=== PATIENT | female | born 1940 | race Caucasian/White ===

== ENCOUNTER 2016-12-29 13:14 | Emergency (ER) | payer MEDICARE, MEDICAID ==
[2016-12-29] MEDS ORDERED: NS 0.9% 1000 ML* 1,000 ML IV SCH (14:30)
[2016-12-29 14:38] LABS: Urine Bacteria Absent (Absent); Urine Bilirubin Negative (Negative); Urine Glucose Negative (Negative); Urine Nitrite Negative (Negative)
[2016-12-29 15:16] LABS: Hematocrit 38 % (35-47); Hemoglobin 13.2 g/dl (12.0-16.0); Mean Corpuscular HGB Conc 35 g/dl (31-36); Mean Corpuscular Hemoglobin 33 pg (27-31); Mean Corpuscular Volume 94 fL (80-97); Mean Platelet Volume 10 um3 (7.4-10.4); Red Blood Count 4.07 10^6/ul (4.0-5.4); Red Cell Distribution Width 13 % (10.5-15); White Blood Count 10.1 10^3/ul (3.5-10.8)
[2016-12-29 15:27] LABS: Albumin 4.3 g/dL (3.2-5.2); BUN/Creatinine Ratio 13.5 (8-20); C Reactive Protein 33.36 mg/L (< 5.00); Calcium 8.9 mg/dL (8.6-10.3); EGFR African American 78.9 (>60); EGFR Non-African American 61.3 (>60); Globulin 2.4 g/dL (2-4); Potassium 3.9 mmol/L (3.5-5.0); Total Bilirubin 0.5 mg/dL (0.2-1.0); Total Protein 6.7 g/dL (6.4-8.9)
--- NOTE | 2016-12-29 16:17 | RAD ---
Indication: Right ankle injury. 2 views of the right ankle demonstrates comminuted fracture of the distal tibia. Diffuse osteopenia is noted. No significant displacement is noted. The location of the fracture is in the same location as was noted on September 25, 2012 with partial healing. IMPRESSION: Spiral fracture distal tibia. The fracture is in similar appearance to that seen on September 25, 2012.
--- NOTE | 2016-12-29 16:21 | RAD ---
Indication: Right lower leg injury. 2 views of the right lower leg demonstrates partially healed fracture of the distal tibia. When compared to previous exam of September 25, 2012 overall components appear to be unchanged. Partial healing is noted. Healing fracture proximal fibula. IMPRESSION: Spiral fracture of the distal tibia similar to that seen on September 25, 2012 with partial healing. Healed fracture proximal fibula.
--- NOTE | 2016-12-29 16:26 | RAD ---
Indication: Right shoulder pain. 3 views of the right shoulder demonstrates a fracture through the surgical neck of the right humerus. . No significant displacement is noted. IMPRESSION: Likely fracture through the surgical neck of the right humerus. No significant displacement is noted.
--- NOTE | 2016-12-29 19:45 | ED ---
Santy Perez Billy, scribed for Lowell De Paz MD on 12/29/16 at 1415 . Lower Extremity - HPI Summary HPI Summary: Patient is a 76 year-old female coming to [facility] for evaluation of right ankle pain since last night. Patient had an unwitnessed fall from her bed at [facility] last night; she suspects that it may have been secondary to a seizure, although admits that she is unsure. The pain in the ankle is worse with any movement. She also complains of right-sided shoulder and hip pain. Patient has a history of CP and seizure disorder. Patient normally uses a wheelchair. - History of Current Complaint Chief Complaint: EDExtremityLower Stated Complaint: FALL Time Seen by Provider: 12/29/16 13:57 Hx Obtained From: Patient Mechanism Of Injury: Fall From Height Of: - bed Onset of Pain: Post Accident Onset/Duration: Hours Severity Initially: Moderate Severity Currently: Moderate Pain Intensity: 2 Pain Scale Used: 0-10 Numeric Timing: Constant Location: Is Discrete @ - right ankle, hip, and shoulder Associated Signs And Symptoms: Positive: Swelling Aggravating Factor(s): Movement Alleviating Factor(s): Rest Able to Bear Weight: No - Allergies/Home Medications Allergies/Adverse Reactions: Allergies Allergy/AdvReac Type Severity Reaction Status Date / Time Cheese Allergy Unknown Unknown Verified 12/29/16 14:42 Reaction Details Hydantoins Allergy Unknown Unknown Verified 12/29/16 14:42 Reaction Details Penicillins [PCN] Allergy Unknown Unknown Verified 12/29/16 14:42 Reaction Details Phenytoin [From Dilantin] Allergy Unknown Unknown Verified 12/29/16 14:42 Reaction Details bananas Allergy Unknown Unknown Uncoded 03/09/15 15:29 Reaction Details broccoli Allergy Unknown Unknown Uncoded 03/09/15 15:29 Reaction Details orange juice Allergy Unknown Unknown Uncoded 03/09/15 15:29 Reaction Details oranges Allergy Unknown Unknown Uncoded 03/09/15 15:29 Reaction Details peppers Allergy Unknown Unknown Uncoded 03/09/15 15:29 Reaction Details tomatoes Allergy Unknown Unknown Uncoded 03/09/15 15:29 Reaction Details Home Medications: Home Medications Melatonin 3 mg PO BEDTIME 12/29/16 [History Confirmed 12/29/16] PMH/Surg Hx/FS Hx/Imm Hx Endocrine/Hematology History: Denies: Hx Anticoagulant Therapy, Other Endocrine/Hematological Disorders Cardiovascular History: Denies: Other Cardiovascular Problems/Disorders Respiratory History: Denies: Other Respiratory Problems/Disorders GI History: Reports: Hx Gastroesophageal Reflux Disease Denies: Other GI Disorders History: Denies: Other Problems/Disorders Musculoskeletal History: Reports: Hx Arthritis, Hx Osteoporosis, Other Musculoskeletal History - kyphosis & scoliosis Sensory History: Reports: Hx Contacts or Glasses, Hx Vision Problem Denies: Hx Hearing Problem, Other Sensory Impairments Opthamlomology History: Reports: Hx Contacts or Glasses, Hx Vision Problem Denies: Other Sensory Impairments Neurological History: Reports: Hx Headaches, Hx Seizures, Other Neuro Impairments/Disorders - Cerebral Palsy Psychiatric History: Reports: Hx Anxiety, Other Psychiatric Issues/Disorders - OCD Denies: Hx Substance Abuse - Cancer History Cancer Type, Location and Year: L side Breast CA - Surgical History Surgery Procedure, Year, and Place: L side Mastectomy Infectious Disease History: No Infectious Disease History: Denies: Traveled Outside the [place] in Last 30 Days - Family History Known Family History: Positive: Diabetes - mother, Other - Mother - lymphoma - Social History Alcohol Use: None Hx Substance Use: No Substance Use Type: Reports: None Smoking Status (MU): Never Smoked Tobacco Review of Systems Negative: Fever Positive: Arthralgia Neurological: Other - possible seizure All Other Systems Reviewed And Are Negative: Yes Physical Exam Triage Information Reviewed: Yes Vital Signs On Initial Exam: Initial Vitals Temp Pulse Resp BP Pulse Ox 98.0 F 80 16 101/65 96 12/29/16 13:19 12/29/16 13:19 12/29/16 13:19 12/29/16 13:19 12/29/16 13:19 Vital Signs Reviewed: Yes Appearance: Positive: Well-Appearing, No Pain Distress Skin: Positive: Warm, Skin Color Reflects Adequate Perfusion, Dry Eyes: Positive: EOMI, SIRIA, Other: - Chronic left eye droop. ENT: Positive: Normal ENT inspection Neck: Positive: Supple, Nontender Respiratory/Lung Sounds: Positive: Clear to Auscultation, Breath Sounds Present Cardiovascular: Positive: RRR Abdomen Description: Positive: Nontender, Soft Bowel Sounds: Positive: Present Musculoskeletal: Positive: Pain @ - Tender to the right shoulder and right greater trochanter. Swelling and tenderness of the right ankle., Edema Right - Right ankle. Neurological: Positive: Normal, Sensory/Motor Intact, Alert, Oriented to Person Place, Time Psychiatric: Positive: Affect/Mood Appropriate - [place] Coma Scale Coma Scale Total: 15 Procedures - Splinting Location: RT DISTAL TIBIA Hand-Made Type: fiberglass Splint: POSTERIOR Pre-Proc Neuro Vasc Exam: normal Post-Proc Neuro Vasc Exam: normal Diagnostics - Vital Signs Vital Signs Temp Pulse Resp BP Pulse Ox 12/29/16 13:23 98.0 F 84 16 101/65 96 12/29/16 13:19 98.0 F 80 16 101/65 96 - Laboratory Lab Results: Lab Results 12/29/16 12/29/16 12/29/16 Range/Units 13:58 15:00 15:00 WBC 10.1 (3.5-10.8) 10^3/ul RBC 4.07 (4.0-5.4) 10^6/ul Hgb 13.2 (12.0-16.0) g/dl Hct 38 (35-47) % MCV 94 (80-97) fL MCH 33 H (27-31) pg MCHC 35 (31-36) g/dl RDW 13 (10.5-15) % Plt Count 195 (150-450) 10^3/ul MPV 10 (7.4-10.4) um3 Neut % (Auto) 76.6 (38-83) % Lymph % (Auto) 11.2 L (25-47) % [place] % (Auto) 9.2 H (1-9) % Eos % (Auto) 1.9 (0-6) % Baso % (Auto) 1.1 (0-2) % Absolute Neuts (auto) 7.7 (1.5-7.7) 10^3/ul Absolute Lymphs (auto) 1.1 (1.0-4.8) 10^3/ul Absolute Monos (auto) 0.9 H (0-0.8) 10^3/ul Absolute Eos (auto) 0.2 (0-0.6) 10^3/ul Absolute Basos (auto) 0.1 (0-0.2) 10^3/ul Absolute Nucleated RBC 0.01 10^3/ul Nucleated RBC % 0.1 Sodium 136 (133-145) mmol/L Potassium 3.9 (3.5-5.0) mmol/L Chloride 99 L (101-111) mmol/L Carbon Dioxide 31 (22-32) mmol/L Anion Gap 6 (2-11) mmol/L BUN 12 (6-24) mg/dL Creatinine 0.89 (0.51-0.95) mg/dL Est GFR ( Amer) 78.9 (>60) Est GFR (Non-Af Amer) 61.3 (>60) BUN/Creatinine Ratio 13.5 (8-20) Glucose 100 (70-100) mg/dL Calcium 8.9 (8.6-10.3) mg/dL Total Bilirubin 0.50 (0.2-1.0) mg/dL AST 13 (13-39) U/L ALT 11 (7-52) U/L Alkaline Phosphatase 80 (34-104) U/L C-Reactive Protein 33.36 H (< 5.00) mg/L Total Protein 6.7 (6.4-8.9) g/dL Albumin 4.3 (3.2-5.2) g/dL Globulin 2.4 (2-4) g/dL Albumin/Globulin Ratio 1.8 (1-3) Urine Color Yellow Urine Appearance Clear Urine pH 6.0 (5-9) Ur Specific [place] 1.009 L (1.010-1.030) Urine Protein Negative (Negative) Urine Ketones Negative (Negative) Urine Blood Negative (Negative) Urine Nitrate Negative (Negative) Urine Bilirubin Negative (Negative) Urine Urobilinogen Negative (Negative) Ur Leukocyte Esterase 3+ H (Negative) Urine WBC (Auto) 3+(>20/hpf) H (Absent) Urine RBC (Auto) Absent (Absent) Ur Squamous Epith Cells Present H (Absent) Urine Bacteria Absent (Absent) Urine Glucose Negative (Negative) Result Diagrams: 12/29/16 15:00 12/29/16 15:00 Lab Statement: Any lab studies that have been ordered have been reviewed, and results considered in the medical decision making process. - Radiology Right Ankle XRay Radiology Interpretation Completed By: Radiologist - Spiral fracture distal tibia. The fracture is in similar appearance to that seen on September 25, 2012. Right Shoulder XRay Radiology Interpretation Completed By: Radiologist - Likely fracture through the surgical neck of the right humerus. No significant displacement is noted. RLE XRay Radiology Interpretation Completed By: Radiologist - Spiral fracture of the distal tibia similar to that seen on September 25, 2012 with partial healing. Healed fracture proximal fibula. Lower Extremity Course/Dx - Course Course Of Treatment: NO CRITICAL CARE TIME. DR ARROYO SAW PATIENT IN ED. RECOMMENDED POSTERIOR SPLINT, NON WEIGHT BEARING AND OUT PATIENT F/U. PATIENT IS NON WEIGHT BEARING. PATIENT IS MOVING RT ARM WITH OUT PAIN SO, IT IS NOT IMMOBILIZED WITH A SLING. DISCHARGE HOME STABLE. Assessment/Plan: Radiology report from [facility] (12/29/16 10:42) reads: There is a comminuted fracture of the distal tibia there is deformity of the distal tibia and fibula compatible with old fracture deformities, the ankle mortise is grossly intact. - Diagnoses Provider Diagnoses: Tibia fracture, Right upper limb pain, Humerus surgical neck fracture - Physician Notifications Discussed Care of Patient With: Dr. Arroyo (orthopedics) at 1820 Discharge - Discharge Plan Condition: Stable Disposition: HOME Patient Education Materials: Leg Fracture (ED), Proximal Humerus Fracture (ED) Referrals: [facility] [Provider Group] Sudhakar Arroyo MD [Medical Doctor] - Myron Haskins MD [Primary Care Provider] - Additional Instructions: FOLLOW UP WITH ORTHOPEDICS, DR ARROYO. CALL TOMORROW, 12/30/16, OR FOLLOW UP. USE YOUR RIGHT ARM TOLERATED IF YOU HAVE NO PAIN. IF YOU HAVE PAIN, KEEP IT IMMOBILIZED WITH A SLING. RETURN TO THE EMERGENCY DEPARTMENT FOR ANY WORSENING OF YOUR CONDITION OR QUESTIONS OR CONCERNS. The documentation as recorded by the Santy medina Billy accurately reflects the service I personally performed and the decisions made by me, Lowell De Paz MD.
[2016-12-29 20:35] VITALS: BP 151/87
--- NOTE | 2016-12-30 00:34 | CONS ---
EMERGENCY ROOM CONSULTATION: DATE OF CONSULT: 12/29/16 HISTORY OF PRESENT ILLNESS: Alma Delia is a 76-year-old woman who is a chronic inpatient at [facility]. She has been nonambulatory for several years. She has a severe seizure disorder and inability to weightbear on the lower extremities. Somehow, she fell out of her bed and sustained a spiral fracture of her right distal tibia. Interestingly, this is the same leg and roughly the same area she broke previously and was seen in the emergency room and treated nonoperatively. Again, Alma Delia is nonambulatory and has active seizure disorder. MEDICATIONS: She is sent along with her records which reveal her medications which include gabapentin, Keppra, melatonin, primidone, Robitussin, and Tylenol No. 3. PHYSICAL EXAM: She is pleasant, alert, and requesting to go back to [facility]. She states she has not walked for 3 years, does 2-person assist, transfers to wheelchair from bed. Only pain of any significant nature by her account is in the right tibial shaft. On exam of the leg, she has slight edema of the right tibial shaft. Alignment looks neutral. She has a warm sensate foot. She is able to dorsiflex and plantar flex her toes, all without pain. There is no tenseness to the tibial area nor the calf. DIAGNOSTIC STUDIES/LAB DATA: Radiograph shows an old chronic well-healed spiral tibia fracture of the right mid third and now a short spiral fracture just below the previous fracture, but it is extra-articular, minimally displaced. PLAN: The plan at this point will be copious padding and splint, and then return to [facility]. I will be able to follow her in my orthopedic office. [id number]/[facility] #: [id number] JANAE
== END 2016-12-29 20:34 | disposition home or self-care (01) ==
LOC: ED 13:14
DX: S82.201A Unspecified fracture of shaft of right tibia, initial encounter for closed fracture (principal); M25.571 Pain in right ankle and joints of right foot; W06.XXXA Fall from bed, initial encounter; Y93.9 Activity, unspecified; Y92.129 Unspecified place in nursing home as the place of occurrence of the external cause; S42.211A Unspecified displaced fracture of surgical neck of right humerus, initial encounter for closed fracture
CPT/HCPCS: 36415; 80053; 80177; 81003; 81015; 85025; 86140; 87077; 87086; 87186; 99284

== ENCOUNTER 2019-06-17 15:42 | Emergency (ER) | payer MEDICARE, MEDICAID ==
--- NOTE | 2019-06-17 16:02 | ED ---
Neurological HPI - HPI Summary HPI Summary: The patient is an 78 y/o F arriving by ambulance to [facility] from [facility] with a chief complaint of possible seizure this afternoon. Per staff, the patient had been in a group environment when she had sudden onset body tremors. While she does have a history of seizures, she does not usually have shaking as she has focal seizures. She denies any headache, chest pain, or abdominal pain. Currently, her symptoms are rated 0/10 in severity. PMHx: GERD, arthritis, headaches, seizures, cerebral palsy, anxiety. Nonsmoker, no EtOH, no substance use. Medications reviewed. Allergies noted. - History of Current Complaint Chief Complaint: EDSeizure Stated Complaint: SEIZURE Time Seen by Provider: 06/17/19 15:53 Hx Obtained From: Patient, Other: - staff at [facility] Onset/Duration: Sudden Onset, Started minutes ago, Resolved Timing: Sudden Onset Onset Severity: Moderate Current Severity: Mild Seizure Severity: Moderate Number of Seizures: 1 - witnessed Pain Intensity: 0 Pain Scale Used: 0-10 Numeric Character: Other: - body tremors Seizure Character: Tonic Aggravating: Unknown Alleviating: Spontanious Resolution Associated Signs and Symptoms: Positive: Seizure. Negative: Headache, Pain, Chest Pain - Allergy/Home Medications Allergies/Adverse Reactions: Allergies Allergy/AdvReac Type Severity Reaction Status Date / Time cheese Allergy Unknown Verified 06/17/19 15:56 Reaction Details Hydantoins Allergy Unknown Verified 06/17/19 15:56 Reaction Details Penicillins Allergy Unknown Verified 06/17/19 15:56 Reaction Details phenytoin Allergy Unknown Verified 06/17/19 15:56 Reaction Details bananas Allergy Unknown Unknown Uncoded 03/09/15 15:29 Reaction Details broccoli Allergy Unknown Unknown Uncoded 03/09/15 15:29 Reaction Details orange juice Allergy Unknown Unknown Uncoded 03/09/15 15:29 Reaction Details oranges Allergy Unknown Unknown Uncoded 03/09/15 15:29 Reaction Details peppers Allergy Unknown Unknown Uncoded 03/09/15 15:29 Reaction Details tomatoes Allergy Unknown Unknown Uncoded 03/09/15 15:29 Reaction Details Home Medications: Home Medications Acetaminophen TAB* [Tylenol TAB*] 650 mg PO Q4H PRN 06/17/19 [History Confirmed 06/17/19] Artificial Tears* 15 ML BTL [Polyvinyl Alcohol 1.4% OPTH*] 1 drop BOTH EYES BID 06/17/19 [History Confirmed 06/17/19] Cetirizine* [ZyrTEC 10 MG TAB*] 10 mg PO DAILY 06/17/19 [History Confirmed 06/17] Cholecalciferol CAP/TAB(NF) [Vitamin D3 CAP/TAB (NF)] 5,000 unit PO DAILY [History Confirmed 06/17/19] Dextran 70/Hypromellose Tears [Natural Balance Tears Eye Drop] 1 drop BOTH EYES BID PRN 06/17/19 [History Confirmed 06/17/19] Divalproex DR TAB(*) [Depakote DR TAB(*)] 250 mg PO BID 06/17/19 [History Confirmed 06/17/19] Glycerin ADULT SUPP* [address] DAILY PRN 06/17/19 [History Confirmed 06/17/19] Melatonin/Pyridoxine HCl (B6) [Melatonin 3 mg Tablet] 3 mg PO BEDTIME 06/17/19 [ History Confirmed 06/17/19] Sennosides [Senna] 2 tab PO BEDTIME 06/17/19 [History Confirmed 06/17/19] amLODIPine TAB* [Norvasc 5 mg TAB*] 2.5 mg PO DAILY 06/17/19 [History Confirmed 06/17/19] levETIRAcetam TAB* [Keppra TAB*] 1,000 mg PO QAM 06/17/19 [History Confirmed 06/26] PMH/Surg Hx/FS Hx/Imm Hx Endocrine/Hematology History: Denies: Hx Anticoagulant Therapy, Hx Diabetes, Other Endocrine/Hematological Disorders Cardiovascular History: Denies: Hx Hypercholesterolemia, Hx Hypertension, Other Cardiovascular Problems/Disorders Respiratory History: Denies: Other Respiratory Problems/Disorders GI History: Reports: Hx Gastroesophageal Reflux Disease Denies: Other GI Disorders History: Denies: Other Problems/Disorders Musculoskeletal History: Reports: Hx Arthritis, Hx Osteoporosis, Other Musculoskeletal History - kyphosis & scoliosis Sensory History: Reports: Hx Contacts or Glasses, Hx Vision Problem Denies: Hx Hearing Problem, Other Sensory Impairments Opthamlomology History: Reports: Hx Contacts or Glasses, Hx Vision Problem Denies: Other Sensory Impairments Neurological History: Reports: Hx Headaches, Hx Seizures, Other Neuro Impairments/Disorders - Cerebral Palsy Psychiatric History: Reports: Hx Anxiety, Other Psychiatric Issues/Disorders - OCD Denies: Hx Substance Abuse - Cancer History Cancer Type, Location and Year: L side Breast CA - Surgical History Surgical History: Yes Surgery Procedure, Year, and Place: L side Mastectomy Infectious Disease History: No Infectious Disease History: Denies: Traveled Outside the [place] in Last 30 Days - Family History Known Family History: Positive: Diabetes - mother, Other - Mother - lymphoma - Social History [facility]: [facility] Alcohol Use: None Hx Substance Use: No Substance Use Type: Reports: None Hx Tobacco Use: No Smoking Status (MU): Never Smoked Tobacco Review of Systems Negative: Chest Pain Negative: Abdominal Pain Neurological: Other - body tremors with possible seizure Negative: Headache All Other Systems Reviewed And Are Negative: Yes Physical Exam - Summary Physical Exam Summary: VITAL SIGNS: Reviewed. GENERAL: Patient is a well-developed and nourished elderly female who is lying comfortable in the stretcher. She is in no acute pain distress. Patient is not in any acute respiratory distress. HEAD AND FACE: No signs of trauma. No ecchymosis, hematomas or skull depressions. No sinus tenderness. EYES: PERRLA, EOMI x 2, No injected conjunctiva, no nystagmus. EARS: Hearing grossly intact. Ear canals and tympanic membranes are within normal limits. MOUTH: Oropharynx within normal limits. NECK: Mild c-spine tenderness. Supple, trachea is midline, no adenopathy, no JVD , no carotid bruit, neck with full ROM. CHEST: Symmetric, no tenderness at palpation. LUNGS: Clear to auscultation bilaterally. No wheezing or crackles. CVS: Regular rate and rhythm, S1 and S2 present, no murmurs or gallops appreciated. ABDOMEN: Soft, non-tender. No signs of distention. No rebound, no guarding, and no masses palpated. Bowel sounds are normal. EXTREMITIES: FROM in all major joints, no edema, no cyanosis or clubbing. NEURO: Alert and oriented x 3. No acute neurological deficits. Speech is normal and follows commands. SKIN: Dry and warm. Triage Information Reviewed: Yes Vital Signs On Initial Exam: Initial Vitals Temp Pulse Resp BP Pulse Ox 98 F 93 17 138/83 95 06/17/19 15:48 06/17/19 15:48 06/17/19 15:48 06/17/19 15:48 06/17/19 15:48 Vital Signs Reviewed: Yes Procedures - Sedation Patient Received Moderate/Deep Sedation with Procedure: No Diagnostics - Vital Signs Vital Signs Temp Pulse Resp BP Pulse Ox 06/17/19 15:48 98 F 93 17 138/83 95 - Laboratory Result Diagrams: 06/17/19 16:58 06/17/19 16:58 Lab Statement: Any lab studies that have been ordered have been reviewed, and results considered in the medical decision making process. - Radiology Chest X-Ray Radiology Interpretation Completed By: Radiologist Summary of Radiographic Findings: Impression: No active cardiopulmonary disease is noted. ED physician has reviewed this report. - EKG 1633 Cardiac Rate: NL - 92 bpm EKG Rhythm: Sinus Rhythm EKG Comparison: No Significant Change - Similar to previous on 03/09/19. Summary of EKG Findings: EKG at 1633 reveals NSR at [address] elevations. ED physician has reviewed and interpreted this EKG. Re-Evaluation - Re-Evaluation First Eval Re-Evaluation Time: 18:30 Change: Unchanged Comment: Patient is clear for discharge following consultation with Dr. Ragland. We discussed all results and plan for discharge. Course/Dx - Course Assessment/Plan: Patient is an 78 y/o F from [facility] with a chief complaint of possible seizure with body tremors this afternoon, which is unsual for her because she experiences focal seizures. She is not in any pain now. Blood work without a significant abnormality except for chloride of 99, glucose of 108, AST of 11, ALT of 6, and valproic acid of 83. I discussed my physical exam findings with Dr. Ragland from the neurology services and he recommends changing the Depakote dosage to 250 mg in the morning and 375 mg at nighttime. The patient should make an appointment with her neurologist. I discussed the findings and test results with the patient, and the patient understands and agrees. I will give a loading dose of Depakote 375 mg before she leaves. I discussed all the findings and test results with the patient. Patient was instructed to return to the emergency room immediately if any of the symptoms return worsens. Plan of care was discussed with the patient and understands and agrees. All questions were answered at patient satisfaction. There were no further complaints or concerns. Lung exam before discharge: CTA B/L. Good air exchange. No wheezing or crackles heard. CVS: S1 and S2 present. No murmurs appreciated. Patient is alert and oriented x 3. Patient is hemodynamically stable. Patient will be discharged home with follow up PCP in the next 2-3 days. - Diagnoses Provider Diagnoses: Seizure - Physician Notifications Discussed Care Of Patient With: Rob Ragland - neurology Time Discussed With Above Provider: 17:47 Instructed by Provider To: Other - I discussed the patient's case with Dr. Ragland. He recommends to change Depakote dose to 250mg in the morning and 375mg at night. Discharge ED - Sign-Out/Discharge Documenting (check all that apply): Patient Departure - Patient will be discharged home. - Discharge Plan Condition: Stable Disposition: HOME Patient Education Materials: Epilepsy (DC) Referrals: Myron Haskins MD [Primary Care Provider] - 3 Days Additional Instructions: Please change your Depakote doses to 250mg IN THE MORNING and 375mg AT NIGHT. Follow up with your neurologist in 2-3 days. Follow up with your primary care provider in 2-3 days. Return to the emergency department for any new or worsening symptoms. - Billing Disposition and Condition Condition: STABLE Disposition: Home - Attestation Statements Document Initiated by Maikel: Yes Documenting Scribe: Goldie Barcenas Provider For Whom Maikel is Documenting (Include Credential): Dr. Tunde Crandall MD Scribe Attestation: Goldie Perez scribed for Dr. Tunde Crandall MD on 06/17/19 at 1836. Scribe Documentation Reviewed: Yes Provider Attestation: The documentation as recorded by the Goldie median accurately reflects the service I personally performed and the decisions made by me, Dr. Tunde Crandall MD Status of Scribcaroline Document: Ready
--- OUTSIDE RECORDS SUMMARY | 2019-06-17 16:13 | XMS REPORT | Continuity of Care Document ---
:1940 External Reference #:[id number] Author Name Gulshan Benoit M.D. 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 Onset: 01/04/2015 Unspecified fracture of shaft of right Dewayne Santizo MD Onset: 12/31/2016 tibia, initial encounter for closed fracture Displaced spiral fracture of shaft of right Dewayne Santizo MD Onset: 2016 tibia, subsequent encounter for closed fracture with routine healing Acute upper respiratory infection, Rosalba Milian NP Onset: 12/30/2017 unspecified Actinic keratosis Rosalba Milian NP Onset: 12/30/2017 Cerebral palsy Clotilde Barahona D.O. Onset: 12/30/2017 Epilepsy Clotilde Barahona D.O. Onset: 12/30/2017 Essential hypertension Clotilde Barahona D.O. Onset: 12/30/2017 Polyneuropathy Clotilde Barahona D.O. Onset: 12/30/2017 Localization-related (focal) (partial) Samantha Barba NP Onset: 12/30/2017 symptomatic epilepsy and epileptic syndromes with simple partial seizures, not intractable, without status epilepticus Seizure Samantha Barba NP Onset: 12/30/2017 Unspecified dementia without behavioral Samantha Barba NP Onset: 12/30/2017 disturbance Closed fracture of shaft of tibia Dewayne Santizo MD Onset: 12/30/2017 Complex partial epileptic seizure Gulshan Benoit M.D. Onset: 12/30/2017 Cerebral palsy Gulshan Benoit M.D. Onset: 12/30/2017 Pneumonia Manjit Hess M.D. Onset: 12/30/2017 Septicemia Unspecified Manjit Hess M.D. Onset: 12/30/2017 Urinary tract infectious disease Manjit Hess M.D. Onset: 12/30/2017 Epilepsy Manjit Hess M.D. Onset: 12/30/2017 Closed fracture of tibia and fibula, shaft Jamie Roman M.D. Onset: 2017 Closed fracture of ankle Jamie Roman M.D. 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 Onset: 2017 complex partial seizures Congenital anomaly of brain Gulshan Benoit M.D. Onset: 12/30/2017 Social History Type Date Description Comments Sex Unknown ETOH Use Denies alcohol use ETOH Use Denies alcohol use Tobacco Use Start: Unknown Patient has never smoked Smoking Status Reviewed: 06/03/19 Patient has never smoked Allergies, Adverse Reactions, Alerts Active Allergies Reaction Severity Comments Date Penicillins 04/13/2013 Chlorpromazine 12/31/2016 Chlorpromazine 04/13/2013 Penicillin 12/31/2016 Dilantin 04/13/2013 Dilantin 12/31/2016 Hydantoins 04/13/2013 Medications Active Medications SIG Qnty Indications Ordering Date Provider Norvasc 1 by mouth every 90tabs I10 [facility] 01/01/2018 2.5mg Tablets day [place], [employer] Senna 2 by mouth QHS 112tabs [facility] 12/30/2017 8.6mg Tablets [place], [employer] Glycolax 17 grms mixed with K59.00 [facility] 12/30/2017 3350NF 6oz water every [place], [employer] Powder day; constipation Divalproex Sodium 1 tab po bid G40.901 [facility] 12/30/2017 [place], [employer] 250mg Tablets DR Artificial Tears apply 2 drops bid 45ml [facility] 12/30/2017 1.4% [place], [employer] Solution Primidone 1 po qd Unknown 250mg Tablets Melatonin 1 tab by mouth Unknown 3mg every night at Capsules bedtime Vitamin D3 one by mouth once Unknown 90606Orgb daily Capsules Gabapentin take 2 capsule PO Unknown 100mg bid Capsules Keppra 1500mg total PO bid Unknown 500mg Tablets Acetaminophen ER 1 tab by mouth q6 Unknown hours as needed 650mg Tablets ER pain Milk Of Magnesia 30ml by mouth every Unknown day as needed 400mg/5ML Suspension Orajel apply to gums q4hrs Unknown 10% Gel as needed mm Cetirizine HCL Unknown 10mg Tablets Immunizations Description No Information Available Vital Signs Date Vital Result Comment 06/03/2019 9:18am Weight 120.00 lb Heart Rate 88 /min BP Systolic Sitting 100 mmHg BP Diastolic Sitting 66 mmHg Respiratory Rate 16 /min 04/21/2018 10:43am Weight 145.00 lb Heart Rate 77 /min BP Systolic 112 mmHg BP Diastolic 64 mmHg Respiratory Rate 20 /min Body Temperature 97.7 F Results Description No Information Available Procedures Description No Information Available Medical Devices Description No Information Available Encounters Description No Information Available Assessments Date Code Description Provider 06/03/2019 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 06/03/2019 G40.909 Epilepsy, unspecified, not intractable, Gulshan eBnoit M.D. without status epilepticus 06/03/2019 Z79.899 Other emt intermediate (current) drug therapy Gulshan Benoit M.D. Plan of Treatment Future Appointment(s):06/06/2020 1:45 pm - [facility] at [facility]06/03/2019 - Gulshan Benoit M.D.G80.2 Spastic hemiplegic cerebral fmuseL74.909 Epilepsy, unspecified, not intractable, without status [id number] Other emt intermediate (current) drug therapyFollow up:get all blood tests from [facility] last 1 year1 YEAR Functional Status Description No Information Available Mental Status Description No Information Available Referrals Description No Information Available
[2019-06-17 17:14] LABS: ABS Basophils 0.1 10^3/ul (0-0.2); ABS Eosinophils 0.1 10^3/ul (0-0.6); ABS Lymphocytes 0.8 10^3/ul (1.0-4.8); ABS Monocytes 0.6 10^3/ul (0-0.8); ABS Neutrophils 5.8 10^3/ul (1.5-7.7); Eosinophil % 1.7 %; Hematocrit 40 % (35-47); Hemoglobin 13.5 g/dL (12.0-16.0); Lymphocyte % 10.4 %; Mean Corpuscular HGB Conc 34 g/dL (31-36); Mean Corpuscular Hemoglobin 32 pg (27-31); Mean Corpuscular Volume 93 fL (80-97); Mean Platelet Volume 8.9 fL (7.4-10.4); Nucleated Red Blood Cells % 0.1; Platelet Count 180 10^3/uL (150-450); Red Blood Count 4.28 10^6 /uL (3.70-4.87); Red Cell Distribution Width 13 % (10-15); White Blood Count 7.3 10^3/uL (3.5-10.8)
[2019-06-17 17:20] LABS: INR 1.09 (0.82-1.09)
[2019-06-17 17:27] LABS: ALT 6 U/L (7-52); AST 11 U/L (13-39); Albumin 4.4 g/dL (3.2-5.2); Albumin/Globulin Ratio 1.8 (1-3); Alkaline Phosphatase 59 U/L (34-104); Anion Gap 10 mmol/L (2-11); Blood Urea Nitrogen 9 mg/dL (6-24); CO2 Carbon Dioxide 29 mmol/L (22-32); Calcium 9.7 mg/dL (8.6-10.3); Chloride 99 mmol/L (101-111); Creatine Kinase 26 U/L (10-223); EGFR African American 134.3 (>60); Globulin 2.5 g/dL (2-4); Glucose 108 mg/dL (70-100); Magnesium 1.9 mg/dL (1.9-2.7); Potassium 4.2 mmol/L (3.5-5.0); Sodium 138 mmol/L (135-145); Total Protein 6.9 g/dL (6.4-8.9)
[2019-06-17 17:28] LABS: Alcohol < 10 mg/dL (<10)
[2019-06-17] MEDS ORDERED: Divalproex Sprinkle CAP* 125 MG PO ONE (18:27)
[2019-06-17 19:05] VITALS: BP 135/83
[2019-06-17] MEDS ORDERED: Divalproex ER TAB(*) 250 MG PO SCH (21:00)
== END 2019-06-17 19:03 | disposition home or self-care (01) ==
LOC: ED 15:42
DX: G40.909 Epilepsy, unspecified, not intractable, without status epilepticus (principal); K21.9 Gastro-esophageal reflux disease without esophagitis; R94.31 Abnormal electrocardiogram [ECG] [EKG]; Z79.899 Other long term (current) drug therapy; Z85.3 Personal history of malignant neoplasm of breast; F41.9 Anxiety disorder, unspecified
CPT/HCPCS: 36415; 71045; 80053; 80164; 80177; 80320; 82550; 83605; 83735; 85025; 85610; 93005; 99283; A9270-GY; G0480

== ENCOUNTER 2019-07-13 11:50 | Emergency (ER) | payer MEDICARE, MEDICAID ==
--- NOTE | 2019-07-13 12:07 | ED ---
Neurological HPI - HPI Summary HPI Summary: Pt is an 78 y/o F presenting to the ED brought in by EMS for a possible seizure. EMS states the pt had been spacing out multiple times this morning, and pt supposedly gets frustrated after asking staff to change her multiple times. Staff also believes she may have had a tonic clonic seizure, unwitnessed. She has hx of CP, spinal fractures, and focal seizures. Pt is unsure what happened, but denies any myalgia or headache. Medications reviewed. Allergies noted. - History of Current Complaint Chief Complaint: EDSeizure Stated Complaint: SEIZURE PER EMS Hx Obtained From: Patient, EMS Onset/Duration: Sudden Onset, Started hours ago, Resolved Timing: Intermittent Episodes Lasting: - minutes Onset Severity: Mild Current Severity: None Seizure Severity: Mild Pain Intensity: 5 Pain Scale Used: 0-10 Numeric Episode Lasting: Seconds/Minutes Syncope Context: Unwitnessed, Unknown Seizure Character: Generalized Aggravating: Unknown Alleviating: Unknown Associated Signs and Symptoms: Negative: Headache - Allergy/Home Medications Allergies/Adverse Reactions: Allergies Allergy/AdvReac Type Severity Reaction Status Date / Time cheese Allergy Unknown Verified 06/17/19 15:56 Reaction Details Hydantoins Allergy Unknown Verified 06/17/19 15:56 Reaction Details Penicillins Allergy Unknown Verified 06/17/19 15:56 Reaction Details phenytoin Allergy Unknown Verified 06/17/19 15:56 Reaction Details bananas Allergy Unknown Unknown Uncoded 03/09/15 15:29 Reaction Details broccoli Allergy Unknown Unknown Uncoded 03/09/15 15:29 Reaction Details orange juice Allergy Unknown Unknown Uncoded 03/09/15 15:29 Reaction Details oranges Allergy Unknown Unknown Uncoded 03/09/15 15:29 Reaction Details peppers Allergy Unknown Unknown Uncoded 03/09/15 15:29 Reaction Details tomatoes Allergy Unknown Unknown Uncoded 03/09/15 15:29 Reaction Details Home Medications: Home Medications Divalproex DR TAB(*) [Depakote DR TAB(*)] 125 mg PO QPM 07/13/19 [History Confirmed 07/13/19] Sennosides/Docusate Sodium [Senna Plus 8.6-50 mg Tablet] 2 each PO BEDTIME 07/13 [History Confirmed 07/13/19] PMH/Surg Hx/FS Hx/Imm Hx Previously Healthy: Yes Endocrine/Hematology History: Denies: Hx Anticoagulant Therapy, Hx Diabetes, Other Endocrine/Hematological Disorders Cardiovascular History: Denies: Hx Hypercholesterolemia, Hx Hypertension, Other Cardiovascular Problems/Disorders Respiratory History: Denies: Other Respiratory Problems/Disorders GI History: Reports: Hx Gastroesophageal Reflux Disease Denies: Other GI Disorders History: Denies: Other Problems/Disorders Musculoskeletal History: Reports: Hx Arthritis, Hx Osteoporosis, Other Musculoskeletal History - kyphosis & scoliosis Sensory History: Reports: Hx Contacts or Glasses, Hx Vision Problem Denies: Hx Hearing Problem, Other Sensory Impairments Opthamlomology History: Reports: Hx Contacts or Glasses, Hx Vision Problem Denies: Other Sensory Impairments Neurological History: Reports: Hx Headaches, Hx Seizures, Other Neuro Impairments/Disorders - Cerebral Palsy Psychiatric History: Reports: Hx Anxiety, Other Psychiatric Issues/Disorders - OCD Denies: Hx Substance Abuse - Cancer History Cancer Type, Location and Year: L side Breast CA - Surgical History Surgery Procedure, Year, and Place: L side Mastectomy Infectious Disease History: No Infectious Disease History: Denies: Traveled Outside the [place] in Last 30 Days - Family History Known Family History: Positive: Diabetes - mother, Other - Mother - lymphoma - Social History Alcohol Use: None Hx Substance Use: No Substance Use Type: Reports: None Hx Tobacco Use: No Smoking Status (MU): Never Smoked Tobacco Review of Systems Negative: Myalgia Negative: Headache All Other Systems Reviewed And Are Negative: Yes Physical Exam - Summary Physical Exam Summary: Constitutional: Well-developed, Well-nourished, Alert. (-) Distressed Skin: Warm, Dry HENT: Normocephalic; Atraumatic Eyes: Conjunctiva normal Neck: Musculoskeletal ROM normal neck. (-) JVD, (-) Stridor, (-) Tracheal deviation Cardio: Rhythm regular, rate normal, Heart sounds normal; Intact distal pulses; Radial pulses are 2+ and symmetric. (-) Murmur Pulmonary/Chest wall: Effort normal. (-) Respiratory distress, (-) Wheezes, (-) Rales Abd: Soft, (-) tenderness, (-) Distension, (-) Guarding, (-) Rebound Musculoskeletal: (-) Edema Lymph: (-) Cervical adenopathy Neuro: Alert, Oriented x3. No acute neurological deficits. Speech is normal. Psych: Mood and affect normal. Triage Information Reviewed: Yes Vital Signs On Initial Exam: Initial Vitals Temp Pulse Resp BP Pulse Ox 98.1 F 84 20 139/76 93 07/13/19 11:55 07/13/19 11:55 07/13/19 11:55 07/13/19 11:55 07/13/19 11:55 Vital Signs Reviewed: Yes Procedures - Sedation Patient Received Moderate/Deep Sedation with Procedure: No Diagnostics - Vital Signs Vital Signs Temp Pulse Resp BP Pulse Ox 07/13/19 11:55 98.1 F 84 20 139/76 93 - Laboratory Result Diagrams: 07/13/19 12:08 07/13/19 12:08 Lab Statement: Any lab studies that have been ordered have been reviewed, and results considered in the medical decision making process. Course/Dx - Course Course Of Treatment: Patient is here with possible recurrent seizures this morning. Patient has focal seizures at baseline and staff thought that she was spacing out at times. The store is confusing as patient denies any symptoms and is overall well-appearing. Patient is at her baseline. Patient has no new neurologic deficits. Patient had lab work performed which is grossly unremarkable. Neurology was called and they recommended following up in clinic and sending off levels here. - Diagnoses Provider Diagnoses: Seizure Discharge ED - Sign-Out/Discharge Documenting (check all that apply): Patient Departure - Discharge Plan Condition: Stable Disposition: HOME Referrals: [facility] [Outside] Rob Ragland MD [Medical Doctor] - Additional Instructions: Please call Dr. Ragland to schedule a follow-up appointment in 1-3 days. Return to the emergency department with any new or worsening symptoms. - Billing Disposition and Condition Condition: STABLE Disposition: Home - Attestation Statements Document Initiated by Scribe: Yes Documenting Scribe: Flor Lopes Provider For Whom Maikel is Documenting (Include Credential): Harris Alexander MD. Scribe Attestation: Flor Perez, scribed for Harris Alexander MD. on 07/13/19 at 1939. Scribe Documentation Reviewed: Yes Provider Attestation: The documentation as recorded by the scribeFolr accurately reflects the service I personally performed and the decisions made by me, Harris Alexander MD. Status of Scribe Document: Viewed Consult Consult: [id number] - I spoke with Dr. Gomez who recommends that the pt follow up with Dr. Ragland.
[2019-07-13 12:19] LABS: ABS Basophils 0.1 10^3/ul (0-0.2); ABS Lymphocytes 0.8 10^3/ul (1.0-4.8); ABS Monocytes 0.7 10^3/ul (0-0.8); ABS Neutrophils 7.6 10^3/ul (1.5-7.7); Eosinophil % 0.5 %; Hematocrit 40 % (35-47); Lymphocyte % 8.4 %; Mean Corpuscular HGB Conc 35 g/dL (31-36); Mean Corpuscular Hemoglobin 32 pg (27-31); Mean Corpuscular Volume 92 fL (80-97); Mean Platelet Volume 8.8 fL (7.4-10.4); Nucleated Red Blood Cells % 0.2; Platelet Count 261 10^3/uL (150-450); Red Blood Count 4.38 10^6 /uL (3.70-4.87); Red Cell Distribution Width 13 % (10-15); White Blood Count 9.1 10^3/uL (3.5-10.8)
[2019-07-13 12:36] LABS: Albumin 4.3 g/dL (3.2-5.2); Albumin/Globulin Ratio 1.8 (1-3); Calcium 9.5 mg/dL (8.6-10.3); EGFR African American 143.6 (>60); EGFR Non-African American 118.7 (>60); Globulin 2.4 g/dL (2-4); Potassium 4.2 mmol/L (3.5-5.0); Total Bilirubin 0.2 mg/dL (0.2-1.0); Total Protein 6.7 g/dL (6.4-8.9)
[2019-07-13 13:13] VITALS: BP 143/86
--- NOTE | 2019-07-15 05:53 | ED ---
Imaging and Labs Follow Up Follow Up Type: Labs/Cultures Labs/Culture Result: Levetriracetam levels resulted. Laboratory tests show that levels of this drug are higher than the reference range. Current drug level is 54.7 with a reference range of 12.0 - 46.0. There is no clear correlation with therapeutic levels and efficacy or tolerability; dosing of this drug should be based on therapeutic response rather than serum concentrations. This patient will be notified and follow up with the provider who prescribes her Levetriracetam. Patient Communication/Plan: Patient will be notified of elevated levels of Levetriracetam. She should follow up with the prescriber of this medication within 2 days for reevaluation. Provider Diagnoses: Seizure
== END 2019-07-13 13:19 | disposition home or self-care (01) ==
LOC: ED 11:50
DX: G40.909 Epilepsy, unspecified, not intractable, without status epilepticus (principal); K21.9 Gastro-esophageal reflux disease without esophagitis; F41.9 Anxiety disorder, unspecified; Z79.899 Other long term (current) drug therapy
CPT/HCPCS: 36415; 80053; 80164; 80177; 80184; 85025; 99283

== ENCOUNTER 2019-09-04 16:51 | Emergency (ER) | payer MEDICARE, MEDICAID ==
[2019-09-04] MEDS ORDERED: levETIRAcetam TAB* 500 MG PO ONE (17:04)
--- NOTE | 2019-09-04 17:35 | ED ---
Neurological HPI - HPI Summary HPI Summary: Patient is an 78 y/o F presenting to the ED via EMS for a chief complaint of seizure on 09/04/19. Patient currently complains of a lmild eft frontal headache which she gets after her seizures. She denies head injury at the time of her seizure. She is unsure when she last had a seizure before this episode. She is unable to ambulate due to bilateral knee weakness which is currently at baseline. Patient denies any aggravating or alleviating factors. Patient takes Keppra daily for a PMHx of seizure disorder. She uses a wheelchair. She lives in [facility]. Per [facility] patient was at her activity center, she was in her chair, was found slumped over and then she had a period of decreased responsiveness and confusion for at least 10-15 minutes. No one witnessed seizure but patient thinks she had one. - History of Current Complaint Chief Complaint: EDSeizure Stated Complaint: SEIZURE Time Seen by Provider: 09/04/19 16:54 Hx Obtained From: Patient Onset/Duration: Sudden Onset, Resolved Timing: Sudden Onset Onset Severity: Moderate Current Severity: Moderate Seizure Severity: Moderate Number of Seizures: 1 Headache Location: Diffuse (Left) Pain Intensity: 0 Pain Scale Used: 0-10 Numeric Character: Typical Migraine Seizure Character: Generalized Aggravating: Nothing Alleviating: Nothing Associated Signs and Symptoms: Positive: Headache, Weakness - Bilateral knee weakness at baseline, Seizure Related Hx: Seizure - Allergy/Home Medications Allergies/Adverse Reactions: Allergies Allergy/AdvReac Type Severity Reaction Status Date / Time cheese Allergy Unknown Verified 06/17/19 15:56 Reaction Details Hydantoins Allergy Unknown Verified 06/17/19 15:56 Reaction Details Penicillins Allergy Unknown Verified 06/17/19 15:56 Reaction Details phenytoin Allergy Unknown Verified 06/17/19 15:56 Reaction Details bananas Allergy Unknown Unknown Uncoded 03/09/15 15:29 Reaction Details broccoli Allergy Unknown Unknown Uncoded 03/09/15 15:29 Reaction Details orange juice Allergy Unknown Unknown Uncoded 03/09/15 15:29 Reaction Details oranges Allergy Unknown Unknown Uncoded 03/09/15 15:29 Reaction Details peppers Allergy Unknown Unknown Uncoded 03/09/15 15:29 Reaction Details tomatoes Allergy Unknown Unknown Uncoded 03/09/15 15:29 Reaction Details PMH/Surg Hx/FS Hx/Imm Hx Previously Healthy: Yes Endocrine/Hematology History: Denies: Hx Anticoagulant Therapy, Hx Diabetes, Other Endocrine/Hematological Disorders Cardiovascular History: Denies: Hx Hypercholesterolemia, Hx Hypertension, Other Cardiovascular Problems/Disorders Respiratory History: Denies: Other Respiratory Problems/Disorders GI History: Reports: Hx Gastroesophageal Reflux Disease Denies: Other GI Disorders History: Denies: Other Problems/Disorders Musculoskeletal History: Reports: Hx Arthritis, Hx Osteoporosis, Other Musculoskeletal History - kyphosis & scoliosis Sensory History: Reports: Hx Contacts or Glasses, Hx Vision Problem Denies: Hx Legally Blind, Hx Deafness, Hx Hearing Problem, Other Sensory Impairments Opthamlomology History: Reports: Hx Contacts or Glasses, Hx Vision Problem Denies: Hx Legally Blind, Other Sensory Impairments EENT History: Denies: Hx Deafness Neurological History: Reports: Hx Headaches, Hx Seizures, Other Neuro Impairments/Disorders - Cerebral Palsy Psychiatric History: Reports: Hx Anxiety, Other Psychiatric Issues/Disorders - OCD Denies: Hx Substance Abuse - Cancer History Cancer Type, Location and Year: L side Breast CA - Surgical History Surgical History: Yes Surgery Procedure, Year, and Place: L side Mastectomy Infectious Disease History: No Infectious Disease History: Denies: Traveled Outside the [place] in Last 30 Days - Family History Known Family History: Positive: Diabetes - mother, Other - Mother - lymphoma - Social History Occupation: Disabled Lives: At [employer] Alcohol Use: None Hx Substance Use: No Substance Use Type: Reports: None Hx Tobacco Use: No Smoking Status (MU): Never Smoked Tobacco Review of Systems Positive: Decreased ROM - Unable to ambulate due to bilateral knee weakness Neurological: Other - Positive seizure Positive: Headache, Weakness - Bilateral knee All Other Systems Reviewed And Are Negative: Yes Physical Exam - Summary Physical Exam Summary: Constitutional: Well-developed, Well-nourished, Alert. (-) Distressed Skin: Warm, Dry HENT: Normocephalic; Atraumatic Eyes: Conjunctiva normal Neck: Musculoskeletal ROM normal neck. (-) JVD, (-) Stridor, (-) Nuchal rigidity Cardio: Rhythm regular, rate normal, Heart sounds normal; Intact distal pulses; Radial pulses are 2+ and symmetric. (-) Murmur Pulmonary/Chest wall: Effort normal. (-) Respiratory distress, (-) Wheezes, (-) Rales Abd: Soft, (-) tenderness, (-) Distension, (-) Guarding, (-) Rebound Musculoskeletal: (-) Edema. Contracture of the left arm. Lymph: (-) Cervical adenopathy Neuro: Alert, Oriented x3 Psych: Mood and affect Normal Triage Information Reviewed: Yes Vital Signs On Initial Exam: Initial Vitals Temp Pulse Resp BP Pulse Ox 97.2 F 91 18 148/89 98 09/04/19 16:59 09/04/19 16:59 09/04/19 16:59 09/04/19 16:59 09/04/19 16:59 Vital Signs Reviewed: Yes Procedures - Sedation Patient Received Moderate/Deep Sedation with Procedure: No Diagnostics - Vital Signs Vital Signs Temp Pulse Resp BP Pulse Ox 09/04/19 16:59 97.2 F 91 18 148/89 98 - Laboratory Result Diagrams: 09/04/19 17:56 09/04/19 17:56 Lab Statement: Any lab studies that have been ordered have been reviewed, and results considered in the medical decision making process. - EKG 17:22 Cardiac Rate: NL - 89 BPM EKG Rhythm: Sinus Rhythm ST Segment: Normal Ectopy: None Summary of EKG Findings: An EKG at 17:22 reveals normal sinus rhythm with 89 BPM , RBBB, ST depression of V5 and V6 with artefact, nml axis, nml intervals. No STEMI. No acute changes. Will repeat. Reviewed and interpreted by Dr. Thakur. 18:00 Cardiac Rate: NL - 87 BPM EKG Rhythm: Sinus Rhythm ST Segment: Normal Ectopy: None EKG Comparison: No Significant Change Summary of EKG Findings: An EKG at 18:00 reveals normal sinus rhythm with 87 BPM , RBBB, left anterior fascicular block, nml axis, nml intervals. No STEMI. No acute changes. No change from prior EKG at 17:22. Reviewed and interpreted by Dr. Thakur. Course/Dx - Course Course Of Treatment: 78 y/o F w hx of seizures (focal and possible tonic clonic ) p/w concern for seizure vs syncope. - VSS NAD. PE GCS 15, well appearing. Denies infectious symptoms. - has a mild headache but states she gets one when she has a seizure. - suspect likely seizure as patient had post ictal period, now resolved. Compliant w keppra. - offered 1 g keppra PO but she declines and states it makes her sleepy. Wants to take her home dose. - EKG unchanged, trop negative. labs notable for 3+ LE in urine. - will give bactrim BID. - Diagnoses Provider Diagnoses: Seizure Discharge ED - Sign-Out/Discharge Documenting (check all that apply): Patient Departure - Discharge - Discharge Plan Condition: Stable Disposition: HOME Prescriptions: Sulfamethox/Trimethoprim DS* [Bactrim DS 800/160 TAB*] 1 tab PO BID 3 Days #6 tab Patient Education Materials: Urinary Tract Infection in Women (ED), Epilepsy ( ED) Referrals: Dieter Richardson MD [Primary Care Provider] - 2 Days Additional Instructions: You were seen in the emergency department for a seizure. Please follow-up with a neurologist. Please take keflex twice a day for 3 days. Please take a shower and do not take a bath, do not swim alone. Do not drive or operate machinery. Please continue taking medications as prescribed and follow-up with your doctor in the next 1-2 days. Please return to emergency department for continued seizures, or if you're concerned. - Billing Disposition and Condition Condition: STABLE Disposition: Home - Attestation Statements Document Initiated by Willyibe: Yes Documenting Scribe: Brandy Trotter Provider For Whom Maikel is Documenting (Include Credential): Dru Thakur MD Scribe Attestation: Brandy Perez, scribed for Dru Thakur MD on 09/05/19 at 0702. Scribe Documentation Reviewed: Yes Provider Attestation: The documentation as recorded by the Brandy medina accurately reflects the service I personally performed and the decisions made by , Dru Thakur MD Status of Scribe Document: Viewed
--- OUTSIDE RECORDS SUMMARY | 2019-09-04 17:39 | XMS REPORT | Continuity of Care Document ---
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 Medicine Problems Active Problems Provider Date [...] Onset: 12/30/2017 Unspecified dementia without behavioral Samantha Barab NP Onset: 12/30/2017 disturbance Closed fracture of [...] Patient has never smoked Smoking Status Reviewed: 08/17/19 Patient has never smoked Exercise Type/Frequency Does not exercise Allergies, Adverse Reactions, Alerts Active Allergies Reaction Severity Comments Date Penicillins 04/13/2013 Chlorpromazine 12/31/2016 Chlorpromazine 04/13/2013 Penicillin 12/31/2016 Dilantin 04/13/2013 Dilantin 12/31/2016 Hydantoins 04/13/2013 Medications Active Medications SIG Qnty Indications Ordering Date Provider Norvasc 1 by mouth every 90tabs I10 [facility] 01/01/2018 2.5mg Tablets day CAROLYNE Milian Senna 2 by mouth QHS 112tabs [facility] 12/30/2017 8.6mg Tablets CAROLYNE Milian Divalproex Sodium 1 tab po bid G40.901 [facility] 12/30/2017 Maicol GILL [employer] [employer] 250mg Tablets DR Artificial Tears apply 2 drops bid 45ml [facility] 12/30/2017 1.4% CAROLYNE Milian Solution Icy Hot apply to spine once Unknown 5% Patches a day for pain Glycerin Suppository insert 1 Unknown suppository rectally as needed if no BM after Mom Enema insert 1 rectally Unknown Enema as needed for constipation Natural Balance 1 drop in both eyes Unknown Tears as needed 0.4% Solution Acetaminophen 2 every 4 hours as Unknown 325mg needed for pain Tablets mm Cetirizine HCL 1 tab daily for Unknown allergies 10mg Tablets Orajel apply to gums q4hrs Unknown 10% Gel as needed Milk Of Magnesia 30ml by mouth every Unknown day as needed 400mg/5ML Suspension Keppra 2 tabs in am, 1 tab Unknown 500mg Tablets at night Gabapentin take 2 capsule PO Unknown 100mg bid Capsules Vitamin D3 one by mouth once Unknown [id number] daily Capsules Melatonin 1 tab by mouth Unknown 3mg every night at Capsules bedtime Primidone 1 po qd Unknown 250mg Tablets Immunizations Description No Information Available Vital Signs Date Vital Result Comment 08/17/2019 11:35am Heart Rate 76 /min BP Systolic 106 mmHg BP Diastolic 62 mmHg 07/19/2019 1:11pm Weight 123.00 lb Heart Rate 84 /min BP Systolic 102 mmHg BP Diastolic 58 mmHg Results Description No Information Available Procedures Description No Information Available Medical Devices Description No Information Available Encounters Type Date Location Provider Dx Diagnosis Office Visit 06/03/[facility] Gulshan Granado80.2 Spastic 9:00a Kristi Benoit. 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 06/03/2019 G40.909 Epilepsy, unspecified, not intractable, Gulshan Benoit M.D. without status epilepticus 06/03/2019 Z79.899 Other fdc (current) drug therapy Gulshan Benoit M.D. Plan of Treatment Future Appointment(s):02/23/2020 2:45 pm - Gulshan Benoit M.D. at [facility]09/16/2019 2:15 pm - Gulshan Benoit M.D. at [facility]08/27/2019 2:30 pm - JEANMARIE Lowe at [facility]06/06/2020 1:45 pm - Gulshan Benoit M.D. at [facility]08/17/2019 - Melvin Rios, NPM40.203 Unspecified kyphosis, cervicothoracic eruzryE10.909 Epilepsy, unspecified, not intractable, without status epilepticusFollow up:SIX ZTFOMMP00.2 Spastic hemiplegic cerebral palsy Functional Status Description No Information Available Mental Status Description No Information Available Referrals Description No Information Available
[2019-09-04 18:04] LABS: ABS Basophils 0.1 10^3/ul (0-0.2); ABS Eosinophils 0.1 10^3/ul (0-0.6); ABS Lymphocytes 0.9 10^3/ul (1.0-4.8); ABS Monocytes 0.7 10^3/ul (0-0.8); Eosinophil % 1.4 %; Hematocrit 40 % (35-47); Hemoglobin 13.7 g/dL (12.0-16.0); Lymphocyte % 11.5 %; Mean Corpuscular HGB Conc 34 g/dL (31-36); Mean Corpuscular Hemoglobin 33 pg (27-31); Mean Corpuscular Volume 95 fL (80-97); Mean Platelet Volume 8.9 fL (7.4-10.4); Platelet Count 217 10^3/uL (150-450); Red Blood Count 4.19 10^6 /uL (3.70-4.87); Red Cell Distribution Width 14 % (10-15); White Blood Count 7.9 10^3/uL (3.5-10.8)
[2019-09-04 18:27] LABS: Albumin 4.4 g/dL (3.2-5.2); Calcium 9.7 mg/dL (8.6-10.3); Potassium 4.2 mmol/L (3.5-5.0); Total Bilirubin 0.2 mg/dL (0.2-1.0)
[2019-09-04 18:32] LABS: Albumin/Globulin Ratio 1.7 (1-3); BUN/Creatinine Ratio 25.9 (8-20); EGFR African American 131.4 (>60); EGFR Non-African American 108.6 (>60); Globulin 2.6 g/dL (2-4)
[2019-09-04 19:05] LABS: Urine Appearance Cloudy; Urine Bilirubin Negative (Negative); Urine Blood Negative (Negative); Urine Color Yellow; Urine Glucose Negative (Negative); Urine Ketones Negative (Negative); Urine Nitrite Negative (Negative); Urine Protein Negative (Negative); Urine Specific Gravity 1.013 (1.010-1.030); Urine Urobilinogen Negative (Negative)
[2019-09-04] MEDS ORDERED: Sulfamethox/Trimethoprim DS 800/160* TAB PO ONE (19:07)
[2019-09-04 19:09] LABS: Urine Bacteria 1+ (Absent); Urine Red Blood Cell 1+(3-5/hpf) (Absent); Urine Squamous Epithelial Cell Present (Absent); Urine White Blood Cell 3+(>20/hpf) (Absent)
[2019-09-04 20:21] VITALS: BP 122/68
--- NOTE | 2019-09-08 07:03 | ED ---
Imaging and Labs Follow Up Follow Up Type: Labs/Cultures Labs/Culture Result: Urine culture final grew Klebsiella oxytoca Patient Communication/Plan: pt given bactrim prior to DC Other Patient Communication/Plan: this is sensitive to organism, nothing further required Provider Diagnoses: Seizure
== END 2019-09-04 19:27 | disposition home or self-care (01) ==
LOC: ED 16:51
DX: R56.9 Unspecified convulsions (principal); K21.9 Gastro-esophageal reflux disease without esophagitis; F41.9 Anxiety disorder, unspecified; Z85.3 Personal history of malignant neoplasm of breast; Z90.12 Acquired absence of left breast and nipple; Z99.3 Dependence on wheelchair; Z79.899 Other long term (current) drug therapy; Z88.0 Allergy status to penicillin; Z88.8 Allergy status to other drugs, medicaments and biological substances
CPT/HCPCS: 36415; 80053; 81003; 81015; 84484; 85025; 87077; 87086; 87186; 93005; 99284; A9270-GY

== ENCOUNTER 2020-09-21 01:25 | Inpatient (IN) ==
[2020-09-21] MEDS ORDERED: NS 0.9% 1000 ml BAG 1,000 ML IV.FLUID IV ONE (01:26)
[2020-09-21] MEDS ORDERED: Dexamethasone IV 4 MG/ML VIAL 1 ml VIAL IV SLOW PU ONE (01:37)
[2020-09-21 01:56] LABS: ABS Lymphocytes 0.6 10^3/ul (1.0-4.8); ABS Monocytes 0.8 10^3/ul (0-0.8); ABS Neutrophils 7.5 10^3/ul (1.5-7.7); Eosinophil % 0.1 %; Hematocrit 38 % (35-47); Hemoglobin 13.4 g/dL (12.0-16.0); Lymphocyte % 6.6 %; Mean Corpuscular HGB Conc 35 g/dL (31-36); Mean Corpuscular Hemoglobin 32 pg (27-31); Mean Corpuscular Volume 90 fL (80-97); Mean Platelet Volume 8.4 fL (7.4-10.4); Platelet Count 261 10^3/uL (150-450); Red Blood Count 4.26 10^6 /uL (3.70-4.87); Red Cell Distribution Width 13 % (10-15)
[2020-09-21 02:04] LABS: Activated Partial Thrombo Time 38.3 seconds (26.0-38.0); INR 1.83 (0.82-1.09)
[2020-09-21 02:13] LABS: Albumin 3.5 g/dL (3.2-5.2); Albumin/Globulin Ratio 0.9 (1-3); BUN/Creatinine Ratio 36.5 (8-20); C Reactive Protein 310.84 mg/L (<8.01); Calcium 8.8 mg/dL (8.6-10.3); EGFR African American 136.9 (>60); EGFR Non-African American 113.2 (>60); Globulin 3.7 g/dL (2-4); Potassium 3.9 mmol/L (3.5-5.0); Total Bilirubin 0.4 mg/dL (0.2-1.0); Total Protein 7.2 g/dL (6.4-8.9)
[2020-09-21 02:15] LABS: Influenza A Molecular Negative (Negative); Influenza B Molecular Negative (Negative)
[2020-09-21 02:15] LABS: Troponin I 0.01 ng/mL (<0.03)
[2020-09-21 02:23] LABS: Urine Appearance Cloudy; Urine Bilirubin Negative (Negative); Urine Blood Negative (Negative); Urine Color Amber; Urine Glucose Negative (Negative); Urine Ketones 1+ (Negative); Urine Nitrite Negative (Negative); Urine Protein 2+(100 mg/dL) (Negative); Urine Specific Gravity 1.021 (1.010-1.030); Urine Urobilinogen Negative (Negative)
[2020-09-21 02:30] LABS: Urine Bacteria 1+ (Absent); Urine Red Blood Cell 2+(6-10/hpf) (Absent); Urine Squamous Epithelial Cell Present (Absent); Urine White Blood Cell 3+(>20/hpf) (Absent)
[2020-09-21 02:38] LABS: Ferritin 652.1 ng/mL (11-307)
[2020-09-21] MEDS ORDERED: Remdesivir 100 mg Vial 200 MG in NS 0.9% 250 ml 210 ML IV ONE (05:01)
[2020-09-21] MEDS ORDERED: Magnesium Hydroxide LIQ 30 ML UDC PO PRN (05:41)
[2020-09-21] MEDS ORDERED: Sodium Phosphate ADULT ENEMA 133 ML BTL PR PRN (05:41)
[2020-09-21 05:52] LABS: ABS Lymphocytes 0.5 10^3/ul (1.0-4.8); ABS Monocytes 0.6 10^3/ul (0-0.8); ABS Neutrophils 7.9 10^3/ul (1.5-7.7); Eosinophil % 0.1 %; Hematocrit 35 % (35-47); Hemoglobin 12.1 g/dL (12.0-16.0); Mean Corpuscular HGB Conc 35 g/dL (31-36); Mean Corpuscular Hemoglobin 32 pg (27-31); Mean Corpuscular Volume 90 fL (80-97); Mean Platelet Volume 8.2 fL (7.4-10.4); Platelet Count 239 10^3/uL (150-450); Red Blood Count 3.84 10^6 /uL (3.70-4.87); Red Cell Distribution Width 13 % (10-15)
[2020-09-21] MEDS ORDERED: AZTREONAM 2 GM x ONCE IVPB ONE (06:00)
[2020-09-21] MEDS ORDERED: Vancomycin 1,250 MG in NS 0.9% 250 ml 250 ML IVPB ONE (06:00)
[2020-09-21] MEDS ORDERED: Cholecalciferol CAP/TAB(NF) ** ENTER STRENGTH IN LABEL DIRECTIONS PO SCH (06:00)
[2020-09-21 06:08] LABS: BUN/Creatinine Ratio 47.6 (8-20); Calcium 8.3 mg/dL (8.6-10.3); EGFR African American 175.2 (>60); EGFR Non-African American 144.8 (>60); Phosphorus 2.4 mg/dL (2.5-5.0); Potassium 3.6 mmol/L (3.5-5.0)
[2020-09-21] MEDS ORDERED: Enoxaparin 30 MG/0.3 ML SYR SUBCUT SCH (09:00)
[2020-09-21] MEDS ORDERED: Vancomycin per Pharmacy 1 EA NOTE FOLLOW UP PRN (09:14)
[2020-09-21] MEDS: Cholecalciferol (VIT D3) 1,000 unit TAB PO SCH ×2 (13:06→14:07)
[2020-09-21] MEDS ORDERED: Aztreonam 2 GM in NS 0.9% 100 ml BAG 100 ML IV SCH (14:00)
[2020-09-21] MEDS: Aztreonam 2 GM in NS 0.9% 100 ml BAG 100 ML IV SCH ×2 (14:17→21:10)
[2020-09-21] MEDS: Vancomycin 1000 MG in NS 0.9% 250 ML IVPB SCH (18:14)
[2020-09-22 02:12] LABS: ABS Lymphocytes 0.7 10^3/ul (1.0-4.8); ABS Monocytes 0.8 10^3/ul (0-0.8); ABS Neutrophils 7.5 10^3/ul (1.5-7.7); Eosinophil % 0.5 %; Hematocrit 34 % (35-47); Hemoglobin 11.8 g/dL (12.0-16.0); Lymphocyte % 7.4 %; Mean Corpuscular HGB Conc 35 g/dL (31-36); Mean Corpuscular Hemoglobin 32 pg (27-31); Mean Corpuscular Volume 91 fL (80-97); Mean Platelet Volume 8.3 fL (7.4-10.4); Platelet Count 244 10^3/uL (150-450); Red Blood Count 3.73 10^6 /uL (3.70-4.87); Red Cell Distribution Width 13 % (10-15); White Blood Count 9.1 10^3/uL (3.5-10.8)
[2020-09-22 02:25] LABS: Albumin 3.1 g/dL (3.2-5.2); Albumin/Globulin Ratio 1.1 (1-3); BUN/Creatinine Ratio 54.8 (8-20); C Reactive Protein 227.68 mg/L (<8.01); Calcium 8.6 mg/dL (8.6-10.3); EGFR African American 175.2 (>60); EGFR Non-African American 144.8 (>60); Globulin 2.8 g/dL (2-4); Potassium 3.4 mmol/L (3.5-5.0); Total Bilirubin 0.3 mg/dL (0.2-1.0); Total Protein 5.9 g/dL (6.4-8.9)
[2020-09-22] MEDS: Azithromycin 500 mg/250 ml NS 500 MG/250 ML BAG IVPB SCH (02:30)
[2020-09-22] MEDS: Vancomycin 1000 MG in NS 0.9% 250 ML IVPB SCH (04:06)
[2020-09-22 04:54] LABS: Urine Appearance Cloudy; Urine Bilirubin Negative (Negative); Urine Blood Negative (Negative); Urine Color Amber; Urine Glucose Negative (Negative); Urine Ketones Negative (Negative); Urine Nitrite Negative (Negative); Urine Protein 1+(30 mg/dL) (Negative); Urine Urobilinogen Positive (Negative)
[2020-09-22 05:02] LABS: Urine Bacteria 1+ (Absent); Urine Red Blood Cell 3+(>10/hpf) (Absent); Urine Squamous Epithelial Cell Present (Absent); Urine White Blood Cell 1+(6-10/hpf) (Absent)
[2020-09-22 05:30] LABS: ABS Eosinophils 0.1 10^3/ul (0-0.6); ABS Lymphocytes 0.6 10^3/ul (1.0-4.8); ABS Monocytes 0.8 10^3/ul (0-0.8); ABS Neutrophils 6.9 10^3/ul (1.5-7.7); Eosinophil % 0.8 %; Hematocrit 32 % (35-47); Hemoglobin 11.2 g/dL (12.0-16.0); Lymphocyte % 7.6 %; Mean Corpuscular HGB Conc 35 g/dL (31-36); Mean Corpuscular Hemoglobin 32 pg (27-31); Mean Corpuscular Volume 90 fL (80-97); Mean Platelet Volume 8.3 fL (7.4-10.4); Platelet Count 241 10^3/uL (150-450); Red Blood Count 3.55 10^6 /uL (3.70-4.87); Red Cell Distribution Width 14 % (10-15); White Blood Count 8.5 10^3/uL (3.5-10.8)
[2020-09-22 05:45] LABS: BUN/Creatinine Ratio 51.1 (8-20); EGFR African American 161.8 (>60); EGFR Non-African American 133.7 (>60); Potassium 3.3 mmol/L (3.5-5.0)
[2020-09-22] MEDS: Aztreonam 2 GM in NS 0.9% 100 ml BAG 100 ML IV SCH (08:54)
[2020-09-22] MEDS ORDERED: Remdesivir 100 mg Vial 100 MG in NS 0.9% 250 ml 230 ML IV SCH (09:00)
[2020-09-22] MEDS: Cholecalciferol (VIT D3) 1,000 unit TAB PO SCH (09:05)
[2020-09-22] MEDS: Enoxaparin 40 MG/0.4 ML SYR SUBCUT SCH (09:06)
[2020-09-22] MEDS ORDERED: Vancomycin Trough Check NOTE FOLLOW UP ONE (10:00)
[2020-09-22] MEDS ORDERED: Potassium Chlor 20 meq TAB.ER PO ONE (10:15)
[2020-09-22] MEDS: Remdesivir 100 mg Vial 100 MG in NS 0.9% 250 ml 230 ML IV SCH (10:40)
[2020-09-22 10:55] LABS: EGFR African American 175.2 (>60); EGFR Non-African American 144.8 (>60); Vancomycin Trough 13.6 mcg/mL
[2020-09-22] MEDS: cefTRIAXone 1 gm/50 mL NS BAG 1 GM/50 ML BAG IVPB SCH (12:45)
[2020-09-22] MEDS: NS 0.45% KCl 20 Meq 1000 ml 1,000 ML IV SCH ×2 (12:56→17:33)
[2020-09-23] MEDS: Azithromycin 500 mg/250 ml NS 500 MG/250 ML BAG IVPB SCH (03:17)
[2020-09-23 04:55] LABS: Hematocrit 26 % (35-47); Hemoglobin 8.9 g/dL (12.0-16.0); Mean Corpuscular HGB Conc 34 g/dL (31-36); Mean Corpuscular Hemoglobin 31 pg (27-31); Mean Corpuscular Volume 92 fL (80-97); Mean Platelet Volume 7.9 fL (7.4-10.4); Platelet Count 190 10^3/uL (150-450); Red Blood Count 2.84 10^6 /uL (3.70-4.87); Red Cell Distribution Width 13 % (10-15)
[2020-09-23 05:28] LABS: White Blood Count 6.8 10^3/uL (3.5-10.8)
[2020-09-23 06:01] LABS: Hematocrit 34 % (35-47); Hemoglobin 11.5 g/dL (12.0-16.0); Mean Corpuscular HGB Conc 34 g/dL (31-36); Mean Corpuscular Hemoglobin 31 pg (27-31); Mean Corpuscular Volume 91 fL (80-97); Mean Platelet Volume 8.7 fL (7.4-10.4); Platelet Count 253 10^3/uL (150-450); Red Cell Distribution Width 14 % (10-15); White Blood Count 9.2 10^3/uL (3.5-10.8)
[2020-09-23 06:20] LABS: BUN/Creatinine Ratio 53.8 (8-20); Calcium 8.2 mg/dL (8.6-10.3); EGFR African American 190.9 (>60); EGFR Non-African American 157.7 (>60); Magnesium 1.9 mg/dL (1.9-2.7); Potassium 3.2 mmol/L (3.5-5.0)
[2020-09-23] MEDS ORDERED: NS 0.9% 250 ml 250 ML ONE (08:59)
[2020-09-23] MEDS: Enoxaparin 40 MG/0.4 ML SYR SUBCUT SCH (10:00)
[2020-09-23] MEDS: Cholecalciferol (VIT D3) 1,000 unit TAB PO SCH (10:01)
[2020-09-23] MEDS: Remdesivir 100 mg Vial 100 MG in NS 0.9% 250 ml 230 ML IV SCH (10:46)
[2020-09-23] MEDS: cefTRIAXone 1 gm/50 mL NS BAG 1 GM/50 ML BAG IVPB SCH (10:49)
[2020-09-23] MEDS: KCL 20 MEQ/100 ML IVPREMIX 20 MEQ/100 ML BAG IV SCH ×2 (18:33→21:18)
[2020-09-24] MEDS: Azithromycin 500 mg/250 ml NS 500 MG/250 ML BAG IVPB SCH (01:20)
[2020-09-24 04:16] LABS: Hematocrit 27 % (35-47); Hemoglobin 9.5 g/dL (12.0-16.0); Mean Corpuscular HGB Conc 35 g/dL (31-36); Mean Corpuscular Hemoglobin 31 pg (27-31); Mean Corpuscular Volume 90 fL (80-97); Mean Platelet Volume 8.4 fL (7.4-10.4); Platelet Count 203 10^3/uL (150-450); Red Blood Count 3.01 10^6 /uL (3.70-4.87); Red Cell Distribution Width 14 % (10-15); White Blood Count 9.6 10^3/uL (3.5-10.8)
[2020-09-24 04:30] LABS: CO2 Carbon Dioxide 18 mmol/L (22-32); Calcium 6.6 mg/dL (8.6-10.3); Potassium 3.7 mmol/L (3.5-5.0)
[2020-09-24 04:35] LABS: Blood Urea Nitrogen 12 mg/dL (6-24); EGFR African American 258.4 (>60); EGFR Non-African American 213.5 (>60); Glucose 120 mg/dL (70-100)
[2020-09-24 04:36] LABS: Anion Gap 9 mmol/L (2-11); Chloride 119 mmol/L (101-111); Sodium 146 mmol/L (135-145)
[2020-09-24] MEDS: Cholecalciferol (VIT D3) 1,000 unit TAB PO SCH (08:23)
[2020-09-24] MEDS: Remdesivir 100 mg Vial 100 MG in NS 0.9% 250 ml 230 ML IV SCH (08:23)
[2020-09-24] MEDS: Enoxaparin 40 MG/0.4 ML SYR SUBCUT SCH (08:23)
[2020-09-24] MEDS: cefTRIAXone 2 GM ADDV.VIAL 2 GM in NS 0.9% 100 ml BAG 100 ML IV SCH (08:39)
[2020-09-24] MEDS ORDERED: Furosemide 20 mg/2 ml IV VIAL IV ONE (09:24)
[2020-09-25 04:15] LABS: ABS Basophils 0.1 10^3/ul (0-0.2); ABS Eosinophils 0.1 10^3/ul (0-0.6); ABS Lymphocytes 1.1 10^3/ul (1.0-4.8); ABS Monocytes 0.9 10^3/ul (0-0.8); ABS Neutrophils 8.9 10^3/ul (1.5-7.7); Eosinophil % 1.1 %; Hematocrit 31 % (35-47); Hemoglobin 10.8 g/dL (12.0-16.0); Lymphocyte % 10.2 %; Mean Corpuscular HGB Conc 35 g/dL (31-36); Mean Corpuscular Hemoglobin 31 pg (27-31); Mean Corpuscular Volume 89 fL (80-97); Mean Platelet Volume 8.7 fL (7.4-10.4); Platelet Count 295 10^3/uL (150-450); Red Blood Count 3.48 10^6 /uL (3.70-4.87); Red Cell Distribution Width 13 % (10-15); White Blood Count 11.2 10^3/uL (3.5-10.8)
[2020-09-25 04:36] LABS: BUN/Creatinine Ratio 35.5 (8-20); Calcium 7.8 mg/dL (8.6-10.3); EGFR African American 248.8 (>60); EGFR Non-African American 205.6 (>60); Potassium 2.9 mmol/L (3.5-5.0)
[2020-09-25] MEDS: KCL 20 MEQ/100 ML IVPREMIX 20 MEQ/100 ML BAG IV SCH ×3 (05:29→15:09)
[2020-09-25] MEDS: Enoxaparin 40 MG/0.4 ML SYR SUBCUT SCH (08:52)
[2020-09-25] MEDS: Cholecalciferol (VIT D3) 1,000 unit TAB PO SCH (08:53)
[2020-09-25 09:27] LABS: Magnesium 1.5 mg/dL (1.9-2.7); Phosphorus 2.5 mg/dL (2.5-5.0)
[2020-09-25] MEDS ORDERED: KCL 20 MEQ/100 ML IVPREMIX 20 MEQ/100 ML BAG IV SCH (10:00)
[2020-09-25] MEDS: Remdesivir 100 mg Vial 100 MG in NS 0.9% 250 ml 230 ML IV SCH (11:39)
[2020-09-25] MEDS: cefTRIAXone 2 GM ADDV.VIAL 2 GM in NS 0.9% 100 ml BAG 100 ML IV SCH (11:39)
[2020-09-25] MEDS ORDERED: Furosemide 20 mg/2 ml IV VIAL IV ONE (22:00)
[2020-09-26 05:04] LABS: Hematocrit 30 % (35-47); Hemoglobin 10.6 g/dL (12.0-16.0); Mean Corpuscular HGB Conc 35 g/dL (31-36); Mean Corpuscular Hemoglobin 31 pg (27-31); Mean Corpuscular Volume 89 fL (80-97); Mean Platelet Volume 8.9 fL (7.4-10.4); Platelet Count 286 10^3/uL (150-450); Red Blood Count 3.41 10^6 /uL (3.70-4.87); Red Cell Distribution Width 14 % (10-15); White Blood Count 10.6 10^3/uL (3.5-10.8)
[2020-09-26 05:14] LABS: Anion Gap 7 mmol/L (2-11); CO2 Carbon Dioxide 30 mmol/L (22-32); Chloride 103 mmol/L (101-111); Magnesium 1.5 mg/dL (1.9-2.7); Potassium 3.1 mmol/L (3.5-5.0); Sodium 140 mmol/L (135-145)
[2020-09-26 05:20] LABS: Blood Urea Nitrogen 9 mg/dL (6-24); EGFR African American 258.4 (>60); EGFR Non-African American 213.5 (>60); Glucose 158 mg/dL (70-100); Phosphorus 2.2 mg/dL (2.5-5.0)
[2020-09-26] MEDS ORDERED: Magnesium Sulfate IV 3 GM in NS 0.9% 100 ml BAG 100 ML IVPB ONE (05:28)
[2020-09-26] MEDS: KCL 20 MEQ/100 ML IVPREMIX 20 MEQ/100 ML BAG IV SCH ×3 (05:39→14:36)
[2020-09-26] MEDS ORDERED: Furosemide 40 mg/4 ml IV VIAL IV ONE (08:34)
[2020-09-26] MEDS: cefTRIAXone 2 GM ADDV.VIAL 2 GM in NS 0.9% 100 ml BAG 100 ML IV SCH (09:02)
[2020-09-26] MEDS: Cholecalciferol (VIT D3) 1,000 unit TAB PO SCH (09:11)
[2020-09-26] MEDS: Enoxaparin 40 MG/0.4 ML SYR SUBCUT SCH (09:26)
[2020-09-27 05:09] LABS: ABS Basophils 0.1 10^3/ul (0-0.2); ABS Eosinophils 0.1 10^3/ul (0-0.6); ABS Lymphocytes 1.3 10^3/ul (1.0-4.8); ABS Neutrophils 8.5 10^3/ul (1.5-7.7); Eosinophil % 1.3 %; Hematocrit 31 % (35-47); Hemoglobin 10.8 g/dL (12.0-16.0); Mean Corpuscular HGB Conc 35 g/dL (31-36); Mean Corpuscular Hemoglobin 31 pg (27-31); Mean Corpuscular Volume 89 fL (80-97); Mean Platelet Volume 9.2 fL (7.4-10.4); Platelet Count 314 10^3/uL (150-450); Red Blood Count 3.44 10^6 /uL (3.70-4.87); Red Cell Distribution Width 14 % (10-15); White Blood Count 11.1 10^3/uL (3.5-10.8)
[2020-09-27 05:16] LABS: Anion Gap 9 mmol/L (2-11); Blood Urea Nitrogen 6 mg/dL (6-24); CO2 Carbon Dioxide 30 mmol/L (22-32); Chloride 94 mmol/L (101-111); EGFR Non-African American 213.5 (>60); Glucose 149 mg/dL (70-100); Potassium 3.6 mmol/L (3.5-5.0); Sodium 133 mmol/L (135-145)
[2020-09-27 05:17] LABS: Calcium 8.1 mg/dL (8.6-10.3); EGFR African American 258.4 (>60); Magnesium 1.8 mg/dL (1.9-2.7); Phosphorus 1.7 mg/dL (2.5-5.0)
[2020-09-27] MEDS ORDERED: Magnesium Sulfate 2 gm BAG 2 GM/50 ML BAG IVPB ONE (05:29)
[2020-09-27] MEDS ORDERED: Potassium Phosphate IV 15 MMOLE in NS 0.9% 250 ml 250 ML IVPB ONE (05:31)
[2020-09-27] MEDS: cefTRIAXone 2 GM ADDV.VIAL 2 GM in NS 0.9% 100 ml BAG 100 ML IV SCH (08:25)
[2020-09-27] MEDS ORDERED: Furosemide 40 mg/4 ml IV VIAL IV ONE (09:01)
[2020-09-27] MEDS: Enoxaparin 40 MG/0.4 ML SYR SUBCUT SCH (09:04)
[2020-09-27] MEDS: Cholecalciferol (VIT D3) 1,000 unit TAB PO SCH (09:05)
[2020-09-27] MEDS: Potassium & Sodium Phos 250 mg = 1 PACKET PO SCH ×3 (14:13→19:59)
[2020-09-28] MEDS ORDERED: Furosemide 40 mg/4 ml IV VIAL IV ONE (09:19)
[2020-09-28 10:04] LABS: Levetiracetam 22.6 mcg/mL
[2020-09-28] MEDS: Cholecalciferol (VIT D3) 1,000 unit TAB PO SCH (10:20)
[2020-09-28] MEDS: Potassium & Sodium Phos 250 mg = 1 PACKET PO SCH ×4 (10:22→20:11)
[2020-09-28] MEDS: Enoxaparin 40 MG/0.4 ML SYR SUBCUT SCH (10:22)
[2020-09-28] MEDS: cefTRIAXone 2 GM ADDV.VIAL 2 GM in NS 0.9% 100 ml BAG 100 ML IV SCH (11:25)
[2020-09-29 06:17] LABS: Hematocrit 31 % (35-47); Hemoglobin 10.9 g/dL (12.0-16.0); Mean Corpuscular HGB Conc 36 g/dL (31-36); Mean Corpuscular Hemoglobin 32 pg (27-31); Mean Corpuscular Volume 89 fL (80-97); Mean Platelet Volume 9.2 fL (7.4-10.4); Platelet Count 357 10^3/uL (150-450); Red Blood Count 3.41 10^6 /uL (3.70-4.87); Red Cell Distribution Width 14 % (10-15); White Blood Count 8.5 10^3/uL (3.5-10.8)
[2020-09-29 06:35] LABS: BUN/Creatinine Ratio 23.1 (8-20); Calcium 8.2 mg/dL (8.6-10.3); EGFR African American 190.9 (>60); EGFR Non-African American 157.7 (>60); Magnesium 1.9 mg/dL (1.9-2.7)
[2020-09-29 08:50] LABS: ABS Eosinophils 0.2 10^3/ul (0-0.6); ABS Lymphocytes 1.4 10^3/ul (1.0-4.8); ABS Monocytes 1.1 10^3/ul (0-0.8); ABS Neutrophils 5.8 10^3/ul (1.5-7.7); Eosinophil % 1.8 %; Lymphocyte % 16.4 %
[2020-09-29] MEDS: Cholecalciferol (VIT D3) 1,000 unit TAB PO SCH (09:30)
[2020-09-29] MEDS: Potassium & Sodium Phos 250 mg = 1 PACKET PO SCH ×4 (09:35→20:04)
[2020-09-29] MEDS: Enoxaparin 40 MG/0.4 ML SYR SUBCUT SCH (09:38)
[2020-09-29] MEDS ORDERED: Furosemide 20 mg/2 ml IV VIAL IV ONE (13:53)
[2020-09-29] MEDS ORDERED: Potassium Chlor 20 meq TAB.ER PO ONE ×2 (17:00→21:00)
[2020-09-30] MEDS: Cholecalciferol (VIT D3) 1,000 unit TAB PO SCH (09:25)
[2020-09-30] MEDS: Potassium & Sodium Phos 250 mg = 1 PACKET PO SCH ×3 (09:26→21:37)
[2020-09-30] MEDS: Enoxaparin 40 MG/0.4 ML SYR SUBCUT SCH (09:26)
[2020-09-30 16:09] LABS: Calcium 8.8 mg/dL (8.6-10.3); EGFR African American 216.2 (>60); EGFR Non-African American 178.7 (>60); Potassium 3.6 mmol/L (3.5-5.0)
[2020-10-01] MEDS: Potassium & Sodium Phos 250 mg = 1 PACKET PO SCH ×5 (02:13→19:21)
[2020-10-01] MEDS: Enoxaparin 40 MG/0.4 ML SYR SUBCUT SCH (09:18)
[2020-10-01] MEDS: Cholecalciferol (VIT D3) 1,000 unit TAB PO SCH (09:18)
[2020-10-02 07:17] LABS: Hematocrit 33 % (35-47); Hemoglobin 11.5 g/dL (12.0-16.0); Mean Corpuscular HGB Conc 35 g/dL (31-36); Mean Corpuscular Hemoglobin 32 pg (27-31); Mean Corpuscular Volume 91 fL (80-97); Mean Platelet Volume 8.7 fL (7.4-10.4); Platelet Count 357 10^3/uL (150-450); Red Blood Count 3.63 10^6 /uL (3.70-4.87); Red Cell Distribution Width 14 % (10-15); White Blood Count 9.7 10^3/uL (3.5-10.8)
[2020-10-02 07:36] LABS: Calcium 8.9 mg/dL (8.6-10.3); EGFR African American 185.4 (>60); EGFR Non-African American 153.2 (>60); Potassium 3.8 mmol/L (3.5-5.0)
[2020-10-02 09:01] LABS: ABS Basophils 0.1 10^3/ul (0-0.2); ABS Eosinophils 0.1 10^3/ul (0-0.6); ABS Lymphocytes 1.2 10^3/ul (1.0-4.8); ABS Monocytes 0.8 10^3/ul (0-0.8); ABS Neutrophils 7.4 10^3/ul (1.5-7.7); Eosinophil % 1.5 %; Lymphocyte % 12.7 %
[2020-10-02] MEDS: Cholecalciferol (VIT D3) 1,000 unit TAB PO SCH (10:44)
[2020-10-02] MEDS: Potassium & Sodium Phos 250 mg = 1 PACKET PO SCH (10:45)
[2020-10-02] MEDS: Enoxaparin 40 MG/0.4 ML SYR SUBCUT SCH (10:45)
[2020-10-02 14:41] VITALS: BP 131/64
== END 2020-10-02 15:00 | DRG 177 ==
LOC: ED 01:25 → MED 07:22 → ICU 09-22 17:27 → MED 09-27 15:05
PROVIDERS: ADMIT Internal Medicine; ATTEND Internal Medicine